=== PATIENT | female | born 1990 | race Caucasian/White ===

== ENCOUNTER 2021-03-05 01:40 | Emergency (ER) | payer SELFPAY ==
[~2021-03-05] VITALS: Ht 172.7 cm; Wt 58.0 kg
--- NOTE | 2021-03-05 02:07 | NUR ---
PATIENT UPDATED ON PLAN OF CARE. NO NOTED ADDITIONAL NEEDS AT THIS TIME. PATIENT VERBALIZED UNDERSTANDING OF PLAN OF CARE AND PROCESS OF VISIT. CALL LIGHT WITHIN REACH, BED IN LOWEST LOCKED POSITION, SIDE RAILS X 2 UP. VSS. WILL CONTINUE TO MONITOR.
[2021-03-05] MEDS ORDERED: LIDOCAINE-MPF 1%, 5ML INFIL ONE (02:30)
[2021-03-05] MEDS ORDERED: LIDOCAINE-MPF 1%, 5ML ONE ×2 (02:42→02:44)
[2021-03-05] MEDS ORDERED: FLUORESCEIN OPHTHALMIC 1 MG STRIP ONE (02:47)
[2021-03-05] MEDS ORDERED: PROPARACAINE OPHTH 0.5%, 15ML ONE (02:47)
--- NOTE | 2021-03-05 03:27 | NUR ---
NERVE BLOCK COMPLETED AT BEDSIDE WITH MD RODRIGUEZ. PATIENT TOLERATED WELL. VSS. NO NOTED ACUTE DISTRESS.
[2021-03-05 03:28] VITALS: BP 138/86
--- NOTE | 2021-03-05 04:11 | NUR ---
PATIENT RESTING IN BED, NO NOTED NEEDS AT THIS TIME. VSS. CALL LIGHT WITHIN REACH, BED IN LOWEST LOCKED POSITION, SIDE RAILS X 2 UP. WILL CONTINUE TO MONITOR.
--- NOTE | 2021-03-05 04:30 | NUR ---
PATIENT CLEARED FOR DISCHARGE. NO NOTED ACUTE DISTRESS. TOLERATING INTERVENTIONS WELL. PATIENT VERBALIZED UNDERSTANDING OF SELF CARE AND FOLLOW UP CARE AT HOME. AMBULATORY WITHOUT COMPLICATIONS TO DISCHARGE DESK WITH SIGNIFICANT OTHER.
== END 2021-03-05 04:32 | disposition home or self-care (01) ==
LOC: ED 02:30
DX: M25.461 Effusion, right knee (principal)
CPT/HCPCS: 64447; 99284